=== PATIENT | male | born 1985 | race Caucasian/White ===

== ENCOUNTER 2023-11-20 10:31 | Emergency (ER) | payer OTHER ==
[~2023-11-20] VITALS: Ht 182.9 cm; Wt 81.6 kg
[2023-11-20 10:45] VITALS: BP_SYST 113; PULSE 82; RESP 18; TEMP 98.3; O2SAT 98
[2023-11-20 15:29] VITALS: BP_SYST 113; PULSE 82; RESP 18; TEMP 98.3; O2SAT 98
== END 2023-11-20 14:45 | disposition home or self-care (01) ==
LOC: SED 10:31
DX: S09.90XA Unspecified injury of head, initial encounter (principal); R42 Dizziness and giddiness; Y04.0XXA Assault by unarmed brawl or fight, initial encounter; Y93.89 Activity, other specified; Y92.89 Other specified places as the place of occurrence of the external cause; Y99.8 Other external cause status
CPT/HCPCS: 70450-TC; 99284